=== PATIENT | male | born 1955 | race Caucasian/White ===

== ENCOUNTER 2017-05-02 12:10 | Inpatient (IN) | payer MEDICARE, OTHER ==
[~2017-05-02] VITALS: Ht 165.1 cm; Wt 55.4 kg
--- NOTE | ~2017-05-02 | CO ---
Unit #: [id number] #: [id number] Patient: ACE VALERO [id number] [address] [address] [id number] I MR#: [id number] NAME: ACE VALERO. ROOM: 562 Age: 62 Sex: M Admission Date: 05/04/2017 : 1955 Attending Physician: Marilynn Brush M.D. Primary Care Physician: Rosana Primary Care Physician Consultation Date: 05/05/2017 CONSULTATION REPORT REASON FOR CONSULT COPD. HISTORY OF PRESENT ILLNESS This is a very pleasant 62-year-old male with past medical history significant for extensive smoking but he was never told that he has COPD, who presented to the emergency room with chest pain and shortness of breath. Patient stated that he smoked for more than 30 years. He doesn't take any inhalers at home. He is not on oxygen or sleep machine. He stated that his sister always complains to him that he snores very loudly and he quit breathing at night. PAST MEDICAL HISTORY 1. Hypertension. 2. Tobacco abuse. 3. End stage renal disease. 4. Anemia. 5. Schizoaffective disorder. 6. Bipolar disorder. 7. Presumed COPD. PAST SURGICAL HISTORY 1. AV fistula. 2. Prostate surgery. 3. Finger amputation. 4. Hemodialysis catheter placement and removal. ALLERGIES Codeine. FAMILY HISTORY Coronary artery disease. SOCIAL HISTORY Patient lives with his sister. He smokes 1.5 pack per day. No history of alcohol or drug abuse. HOME MEDICATION 1. Norvasc. 2. Cymbalta. 3. Hydralazine. Unit #: [id number] #: [id number] Patient: ACE VALERO 4. Seroquel. 5. Sensipar. 6. Norvasc. 7. Divalproex. PHYSICAL EXAMINATION GENERAL: The patient is in no acute distress. VITAL SIGNS: Temperature 98.1, heart rate 65, blood pressure is 151/63. HEENT: Atraumatic, normocephalic. PERRLA, EOMI. NECK: Supple. No JVD, no lymphadenopathy. CHEST: Diffuse bilateral scattered wheezing. HEART: S1, S2. No murmur, gallops or rubs. ABDOMEN: Soft, nontender. Bowel sound is positive. No hepatosplenomegaly. EXTREMITIES: No edema or cyanosis. SKIN: No rashes. METALLURGICAL SPECIALIST: Awake, alert, oriented x3. No focal motor/sensory deficits. LABS AND OTHER TESTS LABORATORY: Creatinine is 5.2, sodium 138, calcium 8.3, white blood count 5.4, hemoglobin 8.7. ASSESSMENT 1. COPD. 2. Presumed obstructive sleep apnea. 3. Chest pain. 4. Chronic anemia. 5. Extensive history of smoking and nicotine abuse. 6. Hypertension. 7. End stage renal disease. 8. Bipolar disorder. PLAN 1. Patient's nocturnal pulse oximetry is consistent with hypoxia so patient would benefit from oxygen at night. 2. Will add bronchodilator to his regimen given his active wheezing but I doubt it is an acute attack of exacerbation. However, he may need also some steroids. 3. Patient was counseled extensively regarding smoking cessation. He is not interest in Chantix due to his bipolar disorder. We discussed Wellbutrin and nicotine patches. 4. Patient will need alpha-1 antitrypsin screening as an outpatient as he has extensive emphysema on CT chest. 5. Patient will benefit from inhaled steroids but we will hold off until he gets his PFTs done. 6. Sleep study as an outpatient. 7. education and development manager to arrange oxygen and nebulizer for discharge. I would like to thank you for allowing me to be part of this patient care. Dictated by... Karen Sarah Unit #: [id number] #: [id number] Patient: ACE VALERO TD: 05/06/2017 07:56 JOB #: [id number] CONSULTATION REPORT Page 1 of 1 X JOSE GALLAGHER MD CONSULTATION REPORT
--- NOTE | ~2017-05-02 | CT57 ---
[facility] A Service of [facility] RADIOLOGY TEXT RESULTS PATIENT: ACE VALERO LOCATION: [facility] 562-01 : 57 UNIT #: [id number] AGE: [address]: KIRK OAKES MD SEX: M ORDER DR: [id number] [facility] [address] [place], [place] [address] [id number] I MR#: [id number] Acc #: [id number] NAME: ACE VALERO. : 1955 SEX: M STUDY DATE/TIME: 05/04/2017 15:01 UNIT: [facility] ROOM: 2 STUDY DESCRIPTION: CT Chest Wo Cont Attending Physician: Kirk Oakes M.D. Ordering Physician: Sukumar Sanchez M.D. Primary Care Physician: No Primary Care Physician MEDICAL IMAGING REPORT This report is preliminary unless electronic signature is present EXAM CT of the chest 05/04/2017 HISTORY Right perihilar infiltrate measuring about 5 cm in diameter seen on portable chest x-ray, chest pain, short of air [address] chest performed without administration of intravenous contrast. This CT exam was performed with one or more of the following radiation dose reduction techniques: Automatic exposure control, adjustment of mA and/or kV according to patient size, and iterative reconstruction. COMPARISON Comparison to chest radiograph earlier on the same date. No prior chest CT for comparison. There are limited views of the lower thorax from CT abdomen and pelvis dated 06/26/2015. FINDINGS Multiple bilateral hypodense thyroid nodules. The largest measuring approximately 1 cm in the left thyroid lobe. No axillary adenopathy. There are mildly enlarged mediastinal nodes. There is an approximately 9-10 mm pretracheal node. There is a 11 mm short-axis aortopulmonary window lymph node. No definite hilar adenopathy. The heart is [id number] limits of normal in size. There are coronary and aortic valvular calcifications. Small bilateral pleural effusions. Liver unremarkable. Gallbladder unremarkable. Ovoid 2.4 cm structure anteromedial spleen. CD density suggests cyst. No significant change from 2014. Pancreas unremarkable. Indeterminate but stable 1 cm nodule right adrenal body most likely adenoma. There is a 1.3 cm nodule in the left adrenal gland which does contain fat by CT density criteria and it is felt to represent a stable adenoma. Bilateral nonobstructing renal calculi. At least moderate partially visualized hydronephrosis in the STS. [facility] A Service of [facility] RADIOLOGY TEXT RESULTS PATIENT: ACE VALERO LOCATION: [facility] 562-01 : 57 UNIT #: [id number] AGE: [address]: KIRK OAKES MD SEX: M ORDER DR: left kidney. Similar appearance in 2015. Etiology unclear. There appears to be some mild cortical thinning in the left kidney compared to 2015. There is no upper abdominal adenopathy. The visualized esophagus, stomach, small bowel and colon are unremarkable. Extensive centrilobular, panlobular and paracentral emphysema. 3 mm noncalcified right upper lobe pulmonary nodule image 14 and 6 mm noncalcified pulmonary nodule right upper lobe and 10/10. Band-like airspace disease, posterior right middle lobe adjacent major and minor fissures likely accounting in part for the density seen on chest radiograph. Configuration suggests atelectasis. Some component of pneumonitis not excluded. Just cephalad to this in the posterior-inferior right upper lobe there are some patchy densities probably atelectatic in nature. Mild pneumonitis not excluded. Small bilateral pleural effusions not drainable. Dependent atelectasis at lung bases. Atherosclerotic arterial calcifications. Ectatic ascending aorta measuring about 3.6 cm in diameter. Bony structures show degenerative change but no acute abnormality. IMPRESSION 1. Please see the complete dictation above for full details. There is extensive centrilobular, panlobular, and paracentral emphysema throughout the lungs bilaterally. In the posterior-superior right middle lobe there is a band-like area of airspace disease favored to be atelectatic in nature. Some component of mild pneumonitis may be present. This is felt to be at least in part responsible for the density seen on chest radiograph. There are some much less pronounced patchier densities in the posterior-inferior right upper lobe likely atelectasis or minimal pneumonitis. 2. Small bilateral pleural effusions not drainable. 3. 3 mm noncalcified pulmonary nodule and 6 mm noncalcified pulmonary nodule in the right upper lobe. 6-month CT follow up recommended unless there are outside studies demonstrating prolonged at least 2-year stability. These nodules are not amenable to characterization with CT/PET scan and are not amenable to percutaneous sampling. 4. Mild mediastinal adenopathy likely reactive. See locations and sizes in body of report. Attention at followup recommended. 5. Stable bilateral adrenal nodules. 1 cm right adrenal nodule unchanged from [address] criteria for adenoma. Nonetheless stability over this time frame favors benign adenoma. The left adrenal nodule is also stable and appears to contain fat consistent with adenoma. 6. Partially visualized left kidney suggests at least moderate hydronephrosis. Similar appearance in 2015. Cause unclear. There does appear to be some relative cortical thinning in the visualized left kidney on today's examination. There is no left perinephric inflammatory change. If it would assist in management, kidneys could be further evaluated with multiphase contrast-enhanced CT or standard intravenous pyelography if the patient is a candidate for iodinated STS. [facility] A Service of [facility] RADIOLOGY TEXT RESULTS PATIENT: ACE VALERO LOCATION: [facility] 562- : 57 UNIT #: [id number] AGE: [address]: KIRK OAKES MD SEX: M ORDER DR: contrast material. 7. Nonobstructing renal calculi bilaterally. 8. Bilateral hypodense thyroid nodules largest in the left thyroid lobe measuring 1 cm. Probably reflecting multinodular goiter. These could be further characterized with elective ultrasound if it would assist in management. Dictated by... Shady Machado M.D. THIS IS AN ELECTRONICALLY VERIFIED REPORT Shady Machado M.D. at 05/06/2017 2:31 PM SHERRI/eh TD: 05/05/2017 08:33 JOB #: [id number] MEDICAL IMAGING REPORT Page 1 of 1 COPY
--- NOTE | ~2017-05-02 | EKG ---
PATIENT: ACE VALERO UNIT #: [id number] Ventricular Rate: 67 BPM Atrial Rate: 67 BPM P-R Interval: 142 ms QRS Duration: 90 ms Q-T Interval: 424 ms QTC Calculation(Bezet): 448 ms P [place]: 41 degrees Calculated R [place]: 1 degrees Calculated T [place]: 44 degrees Diagnosis Line: Normal sinus rhythm Diagnosis Line: Moderate voltage criteria for LVH, may be normal Diagnosis Line: variant Diagnosis Line: Borderline ECG Diagnosis Line: When compared with ECG of 19-MAR-2016 08:01, Diagnosis Line: No significant change was found Diagnosis Line: Confirmed by NISHA BLACKWELL MD ([id number]) on Diagnosis Line: 05/02/2017 2:27:29 PM INTERPRETING MD: RISHI LIRA
--- NOTE | ~2017-05-02 | DS ---
Unit #: [id number] #: [id number] Patient: ACE VALERO [id number] [address] [address] [id number] I MR#: [id number] NAME: ACE VALERO. ROOM: 562 Age: 62 Sex: M Admission Date: 05/04/2017 : 1955 Discharge Date: 05/06/2017 Attending Physician: Marilynn Brush M.D. Primary Care Physician: Primary Care Physician No DISCHARGE SUMMARY DICTATED FOR Dr. Sukumar Sanchez with [facility]. HOSPITAL COURSE The patient was admitted with chest pain as well as shortness of breath on 05/02/2017. The patient complained that he had exertional chest pain described as a tightness, pressure for few months with shortness of breath. He was to have a stress and an echo as an outpatient later this month; however, today he was walking to the store and after half a block, he began to have sharp left-sided chest pain with shortness of breath and pressure. The patient states that the pain was also in the left scapular area. He was diaphoretic, nauseated, lightheaded and was having palpitations. He states that he sat down and the pain then went away after a 15 minutes time. The patient had EKG that showed sinus rhythm with nonspecific T-wave abnormalities. Chest x-ray showed right perihilar infiltrate. Initial troponin was less than 0.05. The patient was admitted where enzymes were trended. Echo was ordered as well as a stress test. The patient did come in hypertensive at 172/80, however, he had not taken his morning medications before he came to the hospital. Dr. Brush adjusted the patient's medications during his stay here and the patient was to undergo a stress test on 05/03/2017; however, his hemoglobin was low and the stress test was canceled. The patient was given 2 units of blood and occult blood was ordered; however, there are no results available at this time. The patient also has a history of chronic kidney disease and he required dialysis during his stay in the hospital, which he is on chronic hemodialysis for. GI was consulted due to anemia and reports that the patient will need an outpatient workup and possible treatment for hepatitis C at [facility]. Hemoglobin was monitored during the patient's stay here, and the patient remained stable with a hemoglobin that has been around 10 to 11 today and yesterday. The patient then did undergo his Lexiscan Cardiolite stress test on 04/24/2017. He complained of nausea, shortness of breath and chest pain, but there were no EKG changes. The patient was found to be in a hypothyroid state, therefore he was started on Synthroid daily. His TSH was noted to be 7.24. The patient then did undergo an EGD with biopsy, where he was found to have grade 3 distal erosive esophagitis with gastritis, focal erosion, duodenal ulcer. The patient was put on Protonix b.i.d. The patient had an echocardiogram on 05/03/2017 that showed mild AZ, an EF of 55% and mild TR as well as mild MR. The patient has been cleared by GI and Renal for discharge when stable. Unit #: [id number] #: [id number] Patient: MARYLUACE [facility] was consulted yesterday due to severe emphysema, COPD, and history of lung nodules also with lung nodules on the CT, where he was not aware of these in the past. Dr. Leo did see the patient and wrote him for some inhalers as an outpatient and will have him to follow up in the office. The patient has been deemed stable for discharge today, where he has been up ambulating and has had no chest pain, pressure, or shortness of breath. The patient will follow up with Dr. Johnson in 1 to 2 weeks, Dr. Brush as already scheduled which should be in 05/2017, and with his PCP in the next 1 to 2 weeks. PHYSICAL EXAMINATION GENERAL: This is a 62-year-old white male, who is alert and oriented x3, in no apparent distress. VITAL SIGNS: Blood pressure is 114/82, temperature 97.5, pulse 90, respirations 16. HEENT: Pupils are equal, round, and reactive. Oral mucosa is moist. NECK: No JVD. No thyromegaly. No lymphadenopathy. No carotid bruits. HEART: S1, S2. No S3 or S4. No clicks. No rubs or murmurs. Regular rate and rhythm. LUNGS: Wheezing throughout. Decreased breath sounds. ABDOMEN: Soft. Bowel sounds positive. Nontender, nondistended. EXTREMITIES: No swelling noted. NEUROLOGICAL: No neuro deficits noted. DISCHARGE DIAGNOSES Include, 1. Chest pain with abnormal Lexiscan. 2. Hypertension. 3. End-stage renal disease, on hemodialysis. 4. Chronic anemia. 5. History of hep C. 6. Tobacco abuse. 7. Schizoaffective and bipolar. 8. LVEF 55% per echo on 05/03/2017. 9. Hypothyroidism. 10. Status post esophagogastroduodenoscopy, grade 2 esophagitis and gastritis. DISCHARGE ALLERGIES Include Novocain and codeine. BODY AFTER ALLERGIES DISCHARGE MEDICATIONS Include Depakote 1000 mg p.o. at bedtime, Cymbalta 60 mg p.o. daily, Seroquel 200 mg p.o. at bedtime, Norvasc 10 mg p.o. daily, Mucinex 600 mg p.o. b.i.d., atorvastatin 80 mg p.o. at bedtime, hydralazine 100 mg p.o. b.i.d., losartan 12.5 mg p.o. b.i.d., Sensipar 30 mg p.o. daily, aspirin 81 mg p.o. daily, Protonix 40 mg p.o. daily, PhosLo 1334 mg p.o. b.i.d. with breakfast and supper, calcium acetate 667 mg with lunch and at bedtime, calcium acetate 1334 mg p.o. with meals. Synthroid 0.025 mg p.o. daily, isosorbide mononitrate 60 mg p.o. daily, DuoNeb 3 mL 4 times a day as needed for shortness of breath or wheezing. DISCHARGE PLAN The patient will be discharged home. He will have follow up with Dr. Santa #: [id number] #: [id number] Patient: ACE VALERO, Dr. Brush as well as PCP in the office. The patient will continue with his renal and hemodialysis as already scheduled. Dr. Sanchez has followed the patient and evaluated discharge and cleared the patient for discharge today. Discussed with the patient. The patient verbalized understanding of the treatment plan and is agreeable to follow up and as well as compliance with medications. Care management will check the cost of the medication to the patient, and if there is anything that is too expensive, acute care registered nurse knows to notify our team so we can make changes. Dictated by... KODAK Jasmine TD: 05/06/2017 15:56 JOB #: [id number] DISCHARGE SUMMARY Page 1 of 1 X X DISCHARGE SUMMARY
--- NOTE | ~2017-05-02 | OR ---
Unit #: [id number] #: [id number] Patient: ACE VALERO [id number] [address] [address] [id number] I MR#: [id number] NAME: ACE VALERO ROOM: 562 Date of Procedure: 05/04/2017 Admission Date: 05/02/2017 Surgeon: Rick Raman M.D. : 1955 Attending Physician: Marilynn Brush M.D. Primary Care Physician: Primary Care Physician No OPERATIVE REPORT PRIMARY CARE PHYSICIAN Anum Wong M.D. PREOPERATIVE DIAGNOSES The patient has history of end-stage renal disease, on hemodialysis. He also has history of hepatitis C. In addition, he is severe anemic, having drop in hemoglobin from 7.5 to 5.7. The purpose of the upper endoscopy is to look for any esophageal varices as well as potential source of blood loss. PROCEDURES PERFORMED Upper gastrointestinal endoscopy and biopsy. POSTOPERATIVE DIAGNOSES 1. The patient had grade 2 distal erosive esophagitis with erosions in Z-line and distal esophagus. 2. Diffuse prepyloric antral superficial hemorrhagic gastritis. This is quite striking. A biopsy was obtained from the antrum for CLOtest. 3. Focal patchy erosive duodenitis involving the duodenal bulb. 4. Rest of the examination up to third part of duodenum was normal. 5. The patient also had a small hiatus hernia. The biopsies obtained from the antrum for CLOtest. RECOMMENDATIONS 1. Pantoprazole 40 mg p.o. daily. 2. Monitor hemoglobin and transfuse packed cells as needed. DESCRIPTION OF PROCEDURE Following detailed explanation of potential risks and complications of an upper endoscopy, namely perforation, bleeding, and complication related to sedation, the patient was brought to GI lab and laid in the left lateral decubitus position. Lubricated tip of the Olympus video upper endoscope was passed through the bite block into the proximal esophagus under direct vision. The entire esophageal mucosa was examined. The patient was noted to have grade 2 distal erosive esophagitis. The scope was then advanced into the gastric cavity and the latter was insufflated. Mucosa of the fundus, body, and antrum was examined. The patient was noted to have diffuse prepyloric antral superficial hemorrhagic gastritis. Pylorus was intubated with visualization of the duodenal bulb. The latter was noted to have focal patchy erosive duodenitis. Second and third part of duodenum were normal. Upon withdrawal and retroflexion, incisura, cardia, and greater curve examined and biopsy obtained from the antrum for Unit #: [id number] #: [id number] Patient: ACE VALERO. The scope was then withdrawn in the distal esophagus. The entire esophageal mucosa was examined all the way up to pharynx. No additional findings noted. The patient tolerated the procedure without any postprocedure complications. Dictated by... Karen Quach/timothy TD: 05/04/2017 15:47 JOB #: [id number] CC: Karen Chaves M.D. OPERATIVE REPORT Page 1 of 1 X Rick Raman MD X PROCEDURE OPERATIVE NOTE
--- NOTE | ~2017-05-02 | HP ---
Unit #: [id number] #: [id number] Patient: ACE VALERO [id number] [address] [place], [place] [address] [id number] I MR#: [id number] NAME: ACE VALERO. ROOM: 57144 Age: 62 Sex: M Admission Date: 05/02/2017 : 1955 Attending Physician: Marilynn Brush M.D. Primary Care Physician: No Primary Care Physician HISTORY AND PHYSICAL HISTORY OF PRESENT ILLNESS This is a 62-year-old male known to Dr. Brush with a prior history of hypertension, tobacco abuse, end-stage renal disease on hemodialysis, and anemia of chronic disease. He was seen by Dr. Brush in the office on April 28, 2017, where he reported exertional chest pain and pressure for the last few months associated with some shortness of breath. At that time, he was scheduled for outpatient Cardiolite stress test and echocardiogram to be done May 13. Today, he presents to the ER via EMS with reports of chest pain and pressure. He states he was walking to the store and after about a half block he developed sharp left chest pain with shortness of breath and pressure. The pain spread into his left scapular area. He does report diaphoresis, nausea, lightheadedness, and palpitations with the pain. He states he sat down and the pain went away after about 15 minutes. He went back home and felt some more pressure, so he called EMS. Currently, he is chest pain free. His blood pressure is slightly elevated 161/93. He states he did not take his blood pressure medicine this morning. EKG shows no ischemic changes. In the ER, he was wheezing and coughing. A chest x-ray shows right perihilar infiltrate. His point of care troponin is less than 0.05. He denies recent illness with fever, chills, or body aches. He denies PND or orthopnea. He does endorse dyspnea on exertion. PAST MEDICAL HISTORY 1. Hypertension. 2. Tobacco abuse. 3. End-stage renal disease on hemodialysis. 4. Anemia. 5. Reportedly normal stress test greater than 10 years ago. 6. Schizoaffective disorder, bipolar type. SOCIAL HISTORY He currently lives with his sister where he does not have a bed. He states he sleeps in a recliner. He smokes one and a half packs per day. He denies alcohol or illicit drug use. FAMILY HISTORY He had a brother who at the age of 45 due to accidental overdose and he had coronary artery disease. PAST SURGICAL HISTORY 1. AV fistula creation. 2. Prostate surgery. 3. First and second finger amputation. 4. Hemodialysis catheter placement and removal. Unit #: [id number] #: [id number] Patient: ACE VALERO karolina Lujan. HOME MEDICATIONS 1. Norvasc 10 mg p.o. daily. 2. Divalproex sodium ER 1000 mg p.o. at bedtime. 3. Cymbalta 60 mg p.o. daily. 4. Hydralazine 50 mg p.o. three times a day. 5. Seroquel 200 mg p.o. at bedtime. 6. Sensipar 30 mg p.o. daily. PHYSICAL EXAMINATION VITAL SIGNS: Temperature 97.9, heart rate 72, blood pressure 161/93. GENERAL: This is a 62-year-old male resting in bed in no acute distress. HEENT: Head is atraumatic, normocephalic. Pupils are equal and reactive to light. Mucous membranes are moist and intact. Poor dentition. NECK: Supple. Trachea is midline. Negative for JVD. LUNGS: Expiratory wheezes and diminished in bases. Nonlabored respirations. CARDIOVASCULAR: S1, S2. Positive systolic murmur. No rubs or gallops. ABDOMEN: Soft, nontender, nondistended. Active bowel sounds. EXTREMITIES: No pedal edema. Pulses are palpable. No cyanosis. NEUROLOGIC: Alert and oriented x3. Moves all extremities equally and follows commands without difficulty. DIAGNOSTIC STUDIES LABORATORY: Sodium 140, potassium 4.2, chloride 101, BUN 46, creatinine 7.2, glucose 112. Hemoglobin 7.5, hematocrit 28.4, white blood cell count 4.8, platelets 184,000. IMAGING: Chest x-ray shows right perihilar infiltrate. CARDIOVASCULAR: EKG shows sinus rhythm with nonspecific T-wave abnormalities. No Q wave. ASSESSMENT 1. Chest pain. 2. Hypertension. 3. End-stage renal disease on hemodialysis. 4. Anemia. 5. Tobacco abuse. PLAN He is currently chest pain free. We will check an echocardiogram. We will admit him for observation. Plan for stress test in a.m. We will continue to trend his enzymes. He did not take his blood pressure medicines today, so we will restart his home medications. Add statin and aspirin. Check lipid profile and TSH. BMP and CBC in a.m. Dictated by Louise Owens APRN for Marilynn Brush M.D. /tonya Unit #: [id number] #: [id number] Patient: ACE VALERO TD: 05/02/2017 17:08 JOB #: [id number] HISTORY AND PHYSICAL Page 1 of 1 X X HISTORY AND PHYSICAL
--- NOTE | ~2017-05-02 | CO ---
Unit #: [id number] #: [id number] Patient: ACE VALERO [id number] [address] [place], [place] [address] [id number] I MR#: [id number] NAME: ACE VALERO ROOM: 562 Age: 62 Sex: M Admission Date: 05/02/2017 : 1955 Attending Physician: Marilynn Brush M.D. Primary Care Physician: Primary Care Physician No Consultation Date: 05/03/2017 CONSULTATION REPORT PRIMARY CARE PHYSICIAN Anum Wong M.D. REASON FOR CONSULTATION Hepatitis C. HISTORY OF PRESENT ILLNESS Mr. Valero is a 62-year-old white gentleman, who has longstanding history of end-stage renal disease, on hemodialysis as well as hypertension and chronic anemia. The patient presented with history of chest pain and chest pressure, and is undergoing cardiac evaluation. He is known to have had hepatitis C in the past. I have been asked to see him from that standpoint. He had a positive hepatitis C with high viral load at the dialysis center. He has not been treated for hepatitis C in the past. Incidentally, he was noted to have hemoglobin of 7.5, and that is dropped to now 5.7. There is no history of overt GI bleed in the form of hematemesis, melena, or hematochezia. The patient denies any history of intravenous drug use. His last endoscopy and colonoscopy were couple of years ago. PAST MEDICAL HISTORY Significant for history of chronic hepatitis C; hypertension; end-stage renal disease, on hemodialysis; chronic anemia; schizoaffective disorder with bipolar type. PAST SURGICAL HISTORY Included placement of hemodialysis catheter, amputation of first and second fingers, prostate surgery, and AV fistula placement. MEDICATIONS At home included Norvasc, Cymbalta, hydralazine, Seroquel, Sensipar, and divalproex. ALLERGIES Allergic to codeine and Novocain. SOCIAL HISTORY The patient lives with his sister. He sleeps in a recliner at room. He does smoke 1-1/2 pack of cigarette daily and does not drink alcohol. FAMILY HISTORY There is no family history of colon, pancreatic cancer, or liver disease. There is history of coronary artery disease in the family. Unit #: [id number] #: [id number] Patient: ACE VALERO REVIEW OF SYSTEMS Detailed review of organ systems does not reveal any recent weight loss. No history of fever, chills, or rigors. No history of headache, seizures, or syncope. No history of cough, expectoration, or hemoptysis. No history of dysuria, hematuria, or pyuria. No history of focal seizures or extremity weakness. PHYSICAL EXAMINATION GENERAL: He is awake, alert, and oriented, appears comfortable. VITAL SIGNS: Stable with a temperature 97.9, pulse is 72 per minute and regular, respirations 18 per minute, blood pressure 132/74. His vital signs also indicated he weighs 121 pounds, which is close to his baseline weight. HEENT: He has moderate pallor. There being no icterus, lymphadenopathy, or peripheral edema. CARDIOVASCULAR: Normal heart sounds. No murmurs. LUNGS: Auscultation over the lungs reveal normal breath sounds. Good air entry. ABDOMEN: Soft and nontender. Liver and spleen are not palpable. Bowel sounds normal. DIAGNOSTIC STUDIES LABORATORY RESULTS: Shows a hemoglobin of 5.7 baseline hemoglobin 7.5; BUN and creatinine 63 and 7.9 respectively. His transaminases normal. Alkaline phosphatase 198. CLINICAL IMPRESSION 1. The patient with chronic hepatitis C. This needs to be addressed too after discharged from the [facility] GI department. 2. Underlying anemia of chronic disease from renal disease as well as possible occult gastrointestinal blood loss. 3. Underlying end-stage renal disease, on hemodialysis. We will consider an upper gastrointestinal endoscopy tomorrow to look for any potential source of blood loss. The patient is already scheduled to have a stress test earlier in the day. Thank you very much for asking me to see this pleasant gentleman. I appreciate the consult. Dictated by... Karen Quach/timothy TD: 05/04/2017 17:55 JOB #: [id number] CC: Karen Chaves M.D. Unit #: [id number] #: [id number] Patient: ACE VALERO CONSULTATION REPORT Page 1 of 1 X Rick Raman MD CONSULTATION REPORT
--- NOTE | ~2017-05-02 | ST ---
Unit #: [id number] #: [id number] Patient: ACE VALERO [id number] [address] [place], [place] [address] [id number] I MR#: [id number] NAME: ACE VALERO. : 1955 SEX: M STUDY DATE/TIME: 05/04/2017 UNIT: [id number] ROOM: 562 STUDY DESCRIPTION: Stress nuclear and ECG Attending Physician: Marilynn Brush M.D. Primary Care Physician: No Primary Care Physician CARDIOLOGY REPORT PROCEDURES Stress nuclear and ECG combined. INDICATION Shortness of breath, nausea, chest pain during infusion. SUMMARY Patient received Lexiscan intravenously while at rest. He could not exercise because of his COPD severity. Technetium 99 Cardiolite, 11.0 and 34.8 mCi, was given at rest and stress respectively, also. Appropriate views were obtained. FINDINGS The resting ECG showed flattened T waves in AVL. With stress there was [address] depression horizontal in V4. Other than this, there was 0.5 mm horizontal to down sloping ST depression. Heart rate increased from 64 to 121, and blood pressure decreased from 190/103 to 164/100, then up to 208/110. Perfusion images demonstrate summed stress scores of 1, no significant patient motion either at rest or stress. There is no significant lung uptake or RV enlargement. There is mild LV enlargement. Gated perfusion wall motion analysis demonstrates end diastolic volume 142 mL. Ejection fraction 63%. No wall motion abnormalities are seen. Perfusion images demonstrate diaphragmatic artifact, both at rest and stress, with intestinal artifact, slightly more prominent with stress than at rest. There is slightly decreased perfusion in the inferior wall with stress, but there is substantial intestinal artifact, which interferes with the correct assessment. IMPRESSION Stress nuclear study shows LV enlargement, normal ejection fraction. No ischemia or infarction. Normal study. Normal wall motion. Dictated by... Unit #: [id number] #: [id number] Patient: ACE VALERO Karen Chaney TD: 05/06/2017 10:35 JOB #: [id number] CARDIOLOGY REPORT Page 1 of 1 X Sukumar Sanchez MD CARDIOLOGY REPORT
--- NOTE | ~2017-05-02 | CR72 ---
[facility] A Service of [facility] & [facility] RADIOLOGY TEXT RESULTS PATIENT: ACE VALERO LOCATION: [facility] 562- : [birth year] UNIT #: [id number] AGE: [address]: KIRK OAKES MD SEX: M ORDER DR: [id number] [facility] [address] [facility]. [place], [place] [address] [id number] I MR#: [id number] Acc #: [id number] NAME: ACE VALERO. : 1955 SEX: M STUDY DATE/TIME: 05/02/2017 12:51 UNIT: [facility] ROOM: [facility] STUDY DESCRIPTION: CR Chest Single View Portable Attending Physician: Kirk Oakes M.D. Ordering Physician: Castro De Jesus M.D. Primary Care Physician: No Primary Care Physician MEDICAL IMAGING REPORT This report is preliminary unless electronic signature is present EXAM Portable chest. HISTORY Shortness of air. Shortness of breath for one month. COMPARISON 03/10/2016. FINDINGS Portable view of the chest was obtained. The heart size and vascularity are normal. Lungs are clear except for possible faint infiltrate in the right perihilar region. This is about 5 cm in diameter. Bones are normal. IMPRESSION There is some questionable faint right perihilar infiltrate measuring about 5 cm in diameter, otherwise no active disease. Dictated by... Zane Melchor M.D. THIS IS AN ELECTRONICALLY VERIFIED REPORT Zane Melchor M.D. at 05/03/2017 10:04 AM FEL/gz TD: 05/03/2017 07:01 JOB #: [id number] MEDICAL IMAGING REPORT Page 1 of 1 COPY
[~2017-05-02 12:10] MED LIST: ABILIFY PO; AMLODIPINE BESYL5 MG PO; ANTACID325 MG PO; BP MED PO; CALCIUM ACETAT667 M1 PO; CALCIUM ACETAT667 M2 PO; COMBIVENT INH14.7 GM INH; CORTISPORIN-TC10 ML OT; CYMBALTA PO; CYMBALTA30 MG PO; DEPAKOTE ER PO; DEPAKOTE PO; DULOXETINE HCL60 MG PO; FAMOTIDINE20 M1 PO; FLEXERIL PO; FOLIC ACID1 MG PO; HYDRALAZINE HC100 MG PO; HYDRALAZINE HCL25 MG PO; HYDROXYZINE HCL10 MG PO; IBUPROFEN PO; KEFLEX500 M2 PO; LAMICTAL100 MG PO; LISINOPRIL PO; LISINOPRIL10 MG PO; MIRALAX17 GM PO; NORVASC PO; NORVASC10 MG PO; ONDANSETRON ODT4 MG SL; PAXIL PO; PEPCID AC20 MG PO; PHENERGAN VC W120 M1 PO; PHENERGAN W/CO120 ML PO; PHOSLO667 MG PO; PLENDIL PO; PRAVACHOL10 MG PO; QUETIAPINE FUM200 MG PO; SENNA S TABLET1 TAB PO; SENSIPAR30 M1 PO; SENSIPAR30 MG PO; SEROQUEL PO; SEROQUEL XR200 MG PO; SODIUM BICARBO650 MG PO; VIBRAMYCIN100 M1 DOB; VICODIN 5/500 T1 TAB PO; VITAMIN D350000 UNIT PO; ZESTRIL40 MG PO; ZITHROMAX1 G/PKT PO
[2017-05-02 13:04] LABS: BASOPHIL% 0.8 % (0-2.5); EOSINOPHIL# 0.1 X10e3 (0-0.7); EOSINOPHIL% 2.5 % (0.0-7.0); HEMATOCRIT 22.4 % (38.0-50.0); HEMOGLOBIN 7.5 gm/dL (13.0-16.0); LYMPHOCYTE# 1.4 X10e3 (1.0-3.5); LYMPHOCYTE% 29.6 % (17.0-45.0); MEAN CELL VOLUME 93.6 FL (83-96); MEAN CORPUSCULAR HEMOGLOBIN 31.4 PG (28-34); MEAN CORPUSCULAR HGB CONC 33.5 g/dL (30-36); MEAN PLATELET VOLUME 6.8 FL (6.5-11.5); MONOCYTE# 0.5 X10e3 (0-1.0); NEUTROPHIL# 2.7 X10e3 (1.5-7.1); NEUTROPHIL% 57.1 % (40-75); PLATELET COUNT 184 X10e3 (140-420); RED CELL DISTRIBUTION WIDTH 16.4 % (11.0-15.5); WHITE BLOOD COUNT 4.8 X10e3 (4.0-10.5)
[2017-05-02 13:09] LABS: DIFF IND YES
[2017-05-02 13:17] LABS: POC - TROPONIN <0.05 ng/mL (<=0.05)
[2017-05-02 13:25] LABS: ALBUMIN SERUM 3.5 g/dL (3.5-5.0); BILIRUBIN, DIRECT 0.1 mg/dL (0.0-0.2); BILIRUBIN,INDIRECT 0.4 mg/dL (0.0-0.9); BILIRUBIN,TOTAL 0.5 mg/dL (0.2-2.0); BUN/CREATININE RATIO 6.38; CALCIUM SERUM 9.1 mg/dL (8.4-10.2); CREATININE SERUM 7.2 mg/dL (0.6-1.4); GLOM FILT RATE Estimated 7.5 mL/min (>60); POTASSIUM 4.2 mmol/L (3.5-5.1); PROTEIN TOTAL SERUM 7.2 g/dL (6.0-8.3)
[2017-05-02 13:30] LABS: ANISOCYTOSIS SL; PLATELET ESTIMATE NORMAL (NORMAL)
[2017-05-02] MEDS ORDERED: PATIENT'S PHARMACY (14:50)
[2017-05-02] MEDS ORDERED: DIVALPROEX SOD500 M2 PO (14:51)
[2017-05-02] MEDS ORDERED: DULOXETINE HCL60 MG PO (14:51)
[2017-05-02] MEDS ORDERED: HYDRALAZINE HCL50 MG PO (14:51)
[2017-05-02] MEDS ORDERED: NORVASC10 MG PO (14:51)
[2017-05-02] MEDS ORDERED: SEROQUEL PO (14:52)
[2017-05-02] MEDS ORDERED: SENSIPAR30 M1 PO (14:52)
[2017-05-02 17:23] LABS: CK TOTAL 52 IU/L (36-174)
[2017-05-02 17:27] LABS: CHOLESTEROL 140 mg/dL (0-200); HDL CHOLESTEROL 31 mg/dL (29-75); LDL CHOLESTEROL 92 mg/dL (-130); LDL/HDL RATIO 3 RATIO (0-4); TRIGLYCERIDES 83 mg/dL (10-160)
[2017-05-02 23:03] LABS: CK TOTAL 46 IU/L (36-174)
[2017-05-03 07:04] LABS: BASOPHIL% 0.2 % (0-2.5); EOSINOPHIL% 0.1 % (0.0-7.0); LYMPHOCYTE# 0.7 X10e3 (1.0-3.5); LYMPHOCYTE% 15.2 % (17.0-45.0); MEAN CELL VOLUME 92.5 FL (83-96); MEAN CORPUSCULAR HEMOGLOBIN 31.2 PG (28-34); MEAN CORPUSCULAR HGB CONC 33.7 g/dL (30-36); MEAN PLATELET VOLUME 6.8 FL (6.5-11.5); MONOCYTE# 0.4 X10e3 (0-1.0); MONOCYTE% 7.9 % (3.0-12.0); NEUTROPHIL# 3.4 X10e3 (1.5-7.1); NEUTROPHIL% 76.6 % (40-75); PLATELET COUNT 164 X10e3 (140-420); RED BLOOD COUNT 1.84 X10e (3.90-5.60); WHITE BLOOD COUNT 4.5 X10e3 (4.0-10.5)
[2017-05-03 07:07] LABS: DIFF IND NO; HEMOGLOBIN 5.7 gm/dL (13.0-16.0)
[2017-05-03 08:09] LABS: BUN/CREATININE RATIO 7.97; CALCIUM SERUM 8.4 mg/dL (8.4-10.2); CREATININE SERUM 7.9 mg/dL (0.6-1.4); GLOM FILT RATE Estimated 6.7 mL/min (>60)
[2017-05-03] MEDS ORDERED: CALCIUM ACETAT667 M1 PO ×2 (11:19→11:20)
[2017-05-03 23:33] LABS: HEMATOCRIT 27.3 % (38.0-50.0); HEMOGLOBIN 9.4 gm/dL (13.0-16.0)
[2017-05-04 07:01] LABS: HEMATOCRIT 28.4 % (38.0-50.0); HEMOGLOBIN 9.7 gm/dL (13.0-16.0); MEAN CORPUSCULAR HEMOGLOBIN 30.2 PG (28-34); MEAN PLATELET VOLUME 6.7 FL (6.5-11.5); RED BLOOD COUNT 3.2 X10e (3.90-5.60); RED CELL DISTRIBUTION WIDTH 16.7 % (11.0-15.5)
[2017-05-04 07:09] LABS: MEAN CELL VOLUME 88.8 FL (83-96)
[2017-05-04 07:48] LABS: BUN/CREATININE RATIO 7.14; CALCIUM SERUM 8.5 mg/dL (8.4-10.2); CREATININE SERUM 3.5 mg/dL (0.6-1.4); GLOM FILT RATE Estimated 17.9 mL/min (>60); PHOSPHOROUS 2.8 mg/dL (2.5-4.6); POTASSIUM 4.5 mmol/L (3.5-5.1)
[2017-05-05 05:19] LABS: HEMATOCRIT 25.4 % (38.0-50.0); HEMOGLOBIN 8.7 gm/dL (13.0-16.0); MEAN CELL VOLUME 89.2 FL (83-96); MEAN CORPUSCULAR HEMOGLOBIN 30.5 PG (28-34); MEAN CORPUSCULAR HGB CONC 34.2 g/dL (30-36); MEAN PLATELET VOLUME 6.6 FL (6.5-11.5); RED BLOOD COUNT 2.85 X10e (3.90-5.60); RED CELL DISTRIBUTION WIDTH 16.8 % (11.0-15.5); WHITE BLOOD COUNT 5.4 X10e3 (4.0-10.5)
[2017-05-05 06:46] LABS: ALBUMIN SERUM 2.7 g/dL (3.5-5.0); BILIRUBIN,TOTAL 0.9 mg/dL (0.2-2.0); BUN/CREATININE RATIO 7.69; CALCIUM SERUM 8.3 mg/dL (8.4-10.2); CREATININE SERUM 5.2 mg/dL (0.6-1.4); GLOM FILT RATE Estimated 11.1 mL/min (>60); MAGNESIUM 2.2 mg/dL (1.6-3.0); POTASSIUM 4.6 mmol/L (3.5-5.1); PROTEIN TOTAL SERUM 5.6 g/dL (6.0-8.3)
[2017-05-06 05:21] LABS: HEMATOCRIT 27.1 % (38.0-50.0); MEAN CELL VOLUME 89.5 FL (83-96); MEAN CORPUSCULAR HEMOGLOBIN 29.7 PG (28-34); MEAN CORPUSCULAR HGB CONC 33.2 g/dL (30-36); MEAN PLATELET VOLUME 6.8 FL (6.5-11.5); RED BLOOD COUNT 3.02 X10e (3.90-5.60); RED CELL DISTRIBUTION WIDTH 16.4 % (11.0-15.5); WHITE BLOOD COUNT 7.6 X10e3 (4.0-10.5)
[2017-05-06 06:11] LABS: ALBUMIN SERUM 2.9 g/dL (3.5-5.0); BUN/CREATININE RATIO 6.31; CALCIUM SERUM 7.9 mg/dL (8.4-10.2); CREATININE SERUM 3.8 mg/dL (0.6-1.4); GLOM FILT RATE Estimated 16.2 mL/min (>60); POTASSIUM 3.9 mmol/L (3.5-5.1); PROTEIN TOTAL SERUM 5.6 g/dL (6.0-8.3)
[2017-05-06] MEDS ORDERED: GUAIFENESIN600 M1 PO (14:01)
[2017-05-06] MEDS ORDERED: LIPITOR PO (14:02)
[2017-05-06] MEDS ORDERED: ASPIRIN81 MG PO (14:03)
[2017-05-06] MEDS ORDERED: COZAAR PO (14:03)
[2017-05-06] MEDS ORDERED: IMDUR PO (14:05)
[2017-05-06] MEDS ORDERED: TIROSINT25 MCG PO (14:05)
[2017-05-06] MEDS ORDERED: COMBIVENT U/D3 M2 INH (14:06)
[2017-05-06] MEDS ORDERED: PROTONIX PO (15:08)
== END 2017-05-06 16:21 | disposition home or self-care (01) | DRG 313 ==
LOC: CED 12:10 → C5B 15:29 → CED 15:29 → C5B 15:29 → CEDOF 15:29 → CED 16:00 → CEDOF 16:00 → C5B 19:48 → CEDOF 19:48 → C5B 05-04 13:55
PROVIDERS: Emergency Medicine; Internal Medicine Gastroenterology; Internal Medicine Interventional Cardiology; Nurse Practitioner; Nurse Practitioner Family
PROC: 30233N1 Transfusion of Nonautologous Red Blood Cells into Peripheral Vein, Percutaneous Approach (ICD-10-PCS; 2017-05-03)
PROC: B24BZZZ Ultrasonography of Heart with Aorta (ICD-10-PCS; 2017-05-03)
PROC: 0DB78ZX Excision of Stomach, Pylorus, Via Natural or Artificial Opening Endoscopic, Diagnostic (ICD-10-PCS; principal; 2017-05-04 14:07)
DX: R07.9 Chest pain, unspecified (principal); I25.10 Atherosclerotic heart disease of native coronary artery without angina pectoris; K29.71 Gastritis, unspecified, with bleeding; K26.9 Duodenal ulcer, unspecified as acute or chronic, without hemorrhage or perforation; I12.0 Hypertensive chronic kidney disease with stage 5 chronic kidney disease or end stage renal disease; N18.6 End stage renal disease; K22.10 Ulcer of esophagus without bleeding; E87.5 Hyperkalemia; R94.39 Abnormal result of other cardiovascular function study; F17.210 Nicotine dependence, cigarettes, uncomplicated; Z99.2 Dependence on renal dialysis; D63.1 Anemia in chronic kidney disease; B18.2 Chronic viral hepatitis C; F25.0 Schizoaffective disorder, bipolar type; E03.9 Hypothyroidism, unspecified; J44.9 Chronic obstructive pulmonary disease, unspecified; G47.33 Obstructive sleep apnea (adult) (pediatric); Z82.49 Family history of ischemic heart disease and other diseases of the circulatory system; Z88.5 Allergy status to narcotic agent; Z89.029 Acquired absence of unspecified finger(s)
CPT/HCPCS: 36415; 36430; 71010; 71250; 78452; 80048; 80053; 80061; 80076; 82274; 82550; 82553; 83735; 84100; 84443; 84484; 85014; 85018; 85025; 85027; 86850; 86900; 86901; 86923; 87040; 87077; 93005; 93017; 93306; 94640; 94760; 94762; 96374; 99285; A9500; J0360; J2405; J2785; J2930; P9016